=== PATIENT | male | born 1995 | race Caucasian/White ===

== ENCOUNTER 2020-09-28 06:00 | Emergency (ER) | payer BC ==
[~2020-09-28] VITALS: Ht 180.3 cm; Wt 54.0 kg
[2020-09-28 06:20] VITALS: BP 118/72; Ht 180.3 cm; Wt 54.0 kg
[2020-09-28] MEDS ORDERED: ATIVAN1 MG PO (06:57)
== END 2020-09-28 06:50 | disposition home or self-care (01) ==
LOC: ED 06:00
DX: B34.9 Viral infection, unspecified (principal); Z88.1 Allergy status to other antibiotic agents